=== PATIENT | male | born 1980 | race Caucasian/White ===

== ENCOUNTER 2017-08-20 22:58 | Inpatient (IN) | payer SELFPAY, BC, OTHER ==
[2017-08-21] MEDS: MORPHINE 4 MG/ML 1ML VIAL/SYRINGE (J2270) IV ×2 (00:12→00:17)
[2017-08-21] MEDS: ONDANSETRON 4MG/2ML VIAL (J2405) IV ×4 (00:12→15:18)
[2017-08-21 00:15] LABS: BASO % 0.4 % (0.0-1.0); EOS # 0.2 10^3/uL (0.0-0.50); EOS % 1.5 % (0.0-3.0); HEMATOCRIT 47.4 % (42.0-52.0); HEMOGLOBIN 15.8 g/dl (13.5-17.5); IMMATURE GRANULOCYTE % 0.6 % (0-3.0); LYMPH # 2.5 10^3/uL (1.5-4.5); LYMPH % 23.2 % (24.0-44.0); MEAN CORPUSCULAR HEMOGLOBIN 27.8 pg (27.0-33.0); MEAN CORPUSCULAR HGB CONC 33.3 g/dl (32.0-36.5); MEAN CORPUSCULAR VOLUME 83.5 fl (80.0-96.0); MONO # 0.8 10^3/uL (0.0-0.8); MONO % 7.9 % (0.0-5.0); NEUTROPHILS % 66.4 % (36.0-66.0); PLATELET COUNT, AUTOMATED 331 10^3/uL (150-450); RED BLOOD COUNT 5.68 10^6/uL (4.30-6.10); RED CELL DISTRIBUTION WIDTH 12.6 % (11.5-14.5); WHITE BLOOD COUNT 10.6 10^3/uL (4.0-10.0)
[2017-08-21] MEDS: NS 1,000 ML IV ×5 (00:16→21:40)
[2017-08-21 00:34] LABS: ALBUMIN 4.2 GM/DL (3.2-5.2); ALBUMIN/GLOBULIN RATIO 1.08 (1.00-1.93); ALKALINE PHOSPHATASE 114 U/L (45-117); ALT/SGPT 44 U/L (12-78); ANION GAP 6 MEQ/L (8-16); AST/SGOT 30 U/L (7-37); BILIRUBIN,DIRECT 0.1 MG/DL (0.0-0.2); BILIRUBIN,TOTAL 0.5 MG/DL (0.2-1.0); BLOOD UREA NITROGEN 22 MG/DL (7-18); CARBON DIOXIDE LEVEL 27 MEQ/L (21-32); CHLORIDE LEVEL 108 MEQ/L (98-107); CREATININE FOR GFR 1.66 MG/DL (0.70-1.30); GLOMERULAR FILTRATION RATE 49.9 (>60); GLUCOSE, FASTING 115 MG/DL (70-100); LIPASE 142 U/L (73-393); POTASSIUM SERUM 4.1 MEQ/L (3.5-5.1); SODIUM LEVEL 141 MEQ/L (136-145); TOTAL PROTEIN 8.1 GM/DL (6.4-8.2)
[2017-08-21] MEDS ORDERED: METOCLOPRAMIDE INJ 10MG/2ML VIAL (J2765) As Ordered (00:53)
[2017-08-21] MEDS ORDERED: HYDROmorphone HCL 1 MG/ML SYRINGE (J1170) As Ordered ×2 (00:53→01:25)
[2017-08-21] MEDS ORDERED: HYDROmorphone HCL 1 MG/ML SYRINGE (J1170) IV (01:00)
[2017-08-21] MEDS: METOCLOPRAMIDE INJ 10MG/2ML VIAL (J2765) IV ×3 (01:05→18:00)
[2017-08-21] MEDS: METHOCARBAMOL 1,000 MG/10 ML VIAL (J2800) IV (02:50)
[2017-08-21 03:17] LABS: CK-MB VALUE MASS 6.9 NG/ML (<3.6); CPK CREATINE PHOSPHOKINASE 523 U/L (39-308); MB/CK RELATIVE INDEX 1.31 (< OR =4); TROPONIN I < 0.02 NG/ML (< 0.10)
[2017-08-21 03:33] LABS: KETONE, URINE AUTO RFX TRACE mg/dL (NEGATIVE); LEUKOCYTE ESTERASE UR AUTO RFX NEGATIVE (NEGATIVE); MUCUS, URINE RFX LARGE (NEGATIVE); NITRITE, URINE AUTO RFX NEGATIVE (NEGATIVE); RBC, URINE AUTO RFX 5 /HPF (0-3); SPECIFIC GRAVITY UR AUTO RFX 1.034 (1.002-1.035); SQUAM EPITHELIAL CELL UR AURFX 0 /HPF (0-6); WBC, URINE AUTO RFX 9 /HPF (0-3)
[2017-08-21] MEDS: methylPREDNISolone INJ 125 MG/2 ML VIAL (J2930) IV (03:41)
[2017-08-21] MEDS: HYDROmorphone HCL 1 MG/ML SYRINGE (J1170) IV ×2 (05:12→06:00)
[2017-08-21] MEDS ORDERED: METHOCARBAMOL 1,000 MG/10 ML VIAL (J2800) IV (06:30)
[2017-08-21 07:42] LABS: BASO % 0.1 % (0.0-1.0); EOS % 0.2 % (0.0-3.0); HEMATOCRIT 41.7 % (42.0-52.0); HEMOGLOBIN 13.9 g/dl (13.5-17.5); IMMATURE GRANULOCYTE % 0.6 % (0-3.0); LYMPH # 0.7 10^3/uL (1.5-4.5); LYMPH % 6.9 % (24.0-44.0); MEAN CORPUSCULAR HEMOGLOBIN 27.6 pg (27.0-33.0); MEAN CORPUSCULAR HGB CONC 33.3 g/dl (32.0-36.5); MEAN CORPUSCULAR VOLUME 82.9 fl (80.0-96.0); MONO # 0.2 10^3/uL (0.0-0.8); MONO % 1.8 % (0.0-5.0); NEUTROPHILS # 8.8 10^3/uL (1.8-7.7); NEUTROPHILS % 90.4 % (36.0-66.0); PLATELET COUNT, AUTOMATED 245 10^3/uL (150-450); RED BLOOD COUNT 5.03 10^6/uL (4.30-6.10); RED CELL DISTRIBUTION WIDTH 12.8 % (11.5-14.5); WHITE BLOOD COUNT 9.8 10^3/uL (4.0-10.0)
[2017-08-21] MEDS: PERCOCET 5MG/325MG TAB PO ×2 (08:06→21:39)
[2017-08-21 08:12] LABS: LACTIC ACID SEPSIS PROTOCOL 1.3 MMOL/L (0.4-2.0)
[2017-08-21 08:12] LABS: ALBUMIN 3.8 GM/DL (3.2-5.2); ALBUMIN/GLOBULIN RATIO 1.03 (1.00-1.93); ALKALINE PHOSPHATASE 109 U/L (45-117); ALT/SGPT 41 U/L (12-78); ANION GAP 9 MEQ/L (8-16); AST/SGOT 34 U/L (7-37); BILIRUBIN,TOTAL 0.7 MG/DL (0.2-1.0); BLOOD UREA NITROGEN 21 MG/DL (7-18); CALCIUM LEVEL 8.3 MG/DL (8.5-10.1); CARBON DIOXIDE LEVEL 24 MEQ/L (21-32); CHLORIDE LEVEL 105 MEQ/L (98-107); CPK CREATINE PHOSPHOKINASE 888 U/L (39-308); CREATININE FOR GFR 1.21 MG/DL (0.70-1.30); GLOMERULAR FILTRATION RATE > 60.0 (>60); GLUCOSE, FASTING 131 MG/DL (70-100); MAGNESIUM LEVEL 2.1 MG/DL (1.8-2.4); POTASSIUM SERUM 4.1 MEQ/L (3.5-5.1); SODIUM LEVEL 138 MEQ/L (136-145); TOTAL PROTEIN 7.5 GM/DL (6.4-8.2); TROPONIN I < 0.02 NG/ML (< 0.10)
[2017-08-21 08:13] LABS: MB/CK RELATIVE INDEX 1.23 (< OR =4)
[2017-08-21] MEDS: HYDROMORPHONE HCL 0.5 MG/ 0.5 ML SYRINGE (J1170 PER 1) IV ×4 (11:11→23:21)
[2017-08-21] MEDS: CYCLOBENZAPRINE 5MG TABLET PO (21:39)
[2017-08-22] MEDS: NS 1,000 ML IV ×4 (03:03→23:02)
[2017-08-22 06:27] LABS: BASO % 0.1 % (0.0-1.0); EOS # 0.1 10^3/uL (0.0-0.50); EOS % 1.2 % (0.0-3.0); HEMATOCRIT 37.2 % (42.0-52.0); HEMOGLOBIN 12.4 g/dl (13.5-17.5); IMMATURE GRANULOCYTE % 0.5 % (0-3.0); LYMPH # 1.5 10^3/uL (1.5-4.5); LYMPH % 19.3 % (24.0-44.0); MEAN CORPUSCULAR HEMOGLOBIN 27.8 pg (27.0-33.0); MEAN CORPUSCULAR HGB CONC 33.3 g/dl (32.0-36.5); MEAN CORPUSCULAR VOLUME 83.4 fl (80.0-96.0); MONO # 0.8 10^3/uL (0.0-0.8); MONO % 9.8 % (0.0-5.0); NEUTROPHILS # 5.3 10^3/uL (1.8-7.7); NEUTROPHILS % 69.1 % (36.0-66.0); PLATELET COUNT, AUTOMATED 223 10^3/uL (150-450); RED BLOOD COUNT 4.46 10^6/uL (4.30-6.10); RED CELL DISTRIBUTION WIDTH 12.9 % (11.5-14.5); WHITE BLOOD COUNT 7.7 10^3/uL (4.0-10.0)
[2017-08-22 06:50] LABS: ANION GAP 7 MEQ/L (8-16); BLOOD UREA NITROGEN 17 MG/DL (7-18); CARBON DIOXIDE LEVEL 27 MEQ/L (21-32); CHLORIDE LEVEL 108 MEQ/L (98-107); CPK CREATINE PHOSPHOKINASE 628 U/L (39-308); GLOMERULAR FILTRATION RATE > 60.0 (>60); GLUCOSE, FASTING 107 MG/DL (70-100); POTASSIUM SERUM 3.6 MEQ/L (3.5-5.1); SODIUM LEVEL 142 MEQ/L (136-145)
[2017-08-22] MEDS: PERCOCET 5MG/325MG TAB PO ×3 (09:40→19:37)
[2017-08-22] MEDS: CYCLOBENZAPRINE 5MG TABLET PO ×2 (10:34→19:36)
[2017-08-22 10:35] LABS: MYOGLOBIN SCREEN, URINE NEGATIVE (NEGATIVE)
[2017-08-22] MEDS: ACETAMINOPHEN TAB 650MG DOSE (2X325MG) PO (13:02)
[2017-08-22] MEDS: HEPARIN SOD (PORCINE) 5000 UNITS/ML VIAL SQ ×2 (14:00→23:02)
[2017-08-23] MEDS: PERCOCET 5MG/325MG TAB PO ×2 (04:19→09:30)
[2017-08-23] MEDS: CYCLOBENZAPRINE 5MG TABLET PO ×2 (04:19→10:30)
[2017-08-23] MEDS: HEPARIN SOD (PORCINE) 5000 UNITS/ML VIAL SQ (06:15)
[2017-08-23] MEDS: NS 1,000 ML IV (10:30)
== END 2017-08-23 12:12 | disposition home or self-care (01) | DRG 460 ==
LOC: M ED 22:58 → M ED INP 08-21 06:17 → M MS4PR 08-21 08:34 → M MSPAV 08-21 17:45
DX: N17.9 Acute kidney failure, unspecified (principal); M51.24 Other intervertebral disc displacement, thoracic region; F43.10 Post-traumatic stress disorder, unspecified; Z88.2 Allergy status to sulfonamides; E66.3 Overweight; Z87.442 Personal history of urinary calculi; M51.27 Other intervertebral disc displacement, lumbosacral region; D64.9 Anemia, unspecified; M79.1 Myalgia; Z68.33 Body mass index [BMI] 33.0-33.9, adult